=== PATIENT | female | born 1975 | race Caucasian/White ===

== ENCOUNTER 2017-01-30 01:41 | Emergency (ER) | payer SELFPAY | END 2017-01-30 03:08 | disposition home or self-care (01) | LOC: ER 01:41 | DX: G43.909 Migraine, unspecified, not intractable, without status migrainosus (principal); Z88.1 Allergy status to other antibiotic agents; Z98.51 Tubal ligation status | CPT/HCPCS: 96365; 96375; J1100; J1885; J2765 ==